=== PATIENT | male | born 1960 | race Asian ===

== ENCOUNTER 2025-03-09 18:56 | Emergency (ER) | payer MEDICARE, MEDICAID ==
[~2025-03-09] VITALS: Ht 154.9 cm; Wt 82.1 kg
[~2025-03-09 18:56] MED LIST: AMLO5TAB2 PO; ATOR10TA70 PO; DOXA4TAB42 PO; GEMF600T89 PO; METO-395 PO; VALS80TA32 PO
[2025-03-09 19:06] VITALS: BP 139/73; PULSE 109; O2SAT 96
[2025-03-09] MEDS ORDERED: ketorolac trometh 30MG/ML vial 30 MG/ML VIAL IM STA (20:08)
[2025-03-09 20:45] VITALS: RESP 14
[2025-03-09] MEDS: ketorolac trometh 15mg/ml vial 15 MG/ML ML IM STA (20:45)
--- NOTE | 2025-03-09 20:53 | RADIOLOGY REPORT ---
INDICATION: neck pain TECHNIQUE: 4 views of the cervical spine were obtained. COMPARISON: None FINDINGS: The cervical spine is visualized from C1-C7. There is loss of the normal cervical lordosis which can be positional. No fractures or subluxations are identified. Multilevel degenerative changes of the spine Alignment appears unremarkable. Prevertebral soft tissues are within normal limits. IMPRESSION: No acute fracture or subluxation
--- NOTE | 2025-03-09 21:50 | Physician Documentation ---
History of Present Illness ~ Chief Complaint: Neck pain Stated Complaint: NECK PAIN Time Seen by MD: 19:36 HPI Patient is seen today with complaints of left-sided neck pain. He states he has had this pain for quite a few years but just recently became worse and he feels tight muscles in his left side of his neck. Patient denies any specific injury and denies any numbness or tingling of his upper or lower extremities. He has no other concern or complaint at this time. Medication Reconciliation Allergies: Coded Allergies: No Known Allergies (Unverified , 03/09/25) Scheduled Amlodipine Besylate (Amlodipine Besylate), 5 MG PO DAILY, (Reported) Atorvastatin Calcium (Atorvastatin Calcium), 10 MG PO DAILY, (Reported) Doxazosin Mesylate (Doxazosin Mesylate), 1 TAB PO DAILY, (Reported) Gemfibrozil (Gemfibrozil), 1 TAB PO BID, (Reported) Metoprolol Succinate (Metoprolol Succinate), 12.5 MG PO DAILY, (Reported) Valsartan (Valsartan), 1 TAB PO DAILY, (Reported) Past Medical History Past Medical History: Coronary Artery Disease, Hypertension Past Surgical History: coronary bypass surgery Smoking Status: Never smoker Alcohol Use: Occasionally Drug Use: none Lives with: Family Physical Exam Vital Signs: Temperature: 98.5, Source: Temporal, Heart Rate: 109, Respiratory Rate: 14, BP: 139/73, Pulse Oximetry: 96, Weight: 82.100 Oxygen Flow Rate: 0 Progress Results/Orders Results/Orders Orders - SAWYER CROSS [facility] Cervical Spine [facility] (03/09/25 20:08) Completed Orders - SAWYER CROSS [facility] Cervical Spine [facility] (03/09/25 20:08) Baclofen Tablet (Lioresal Tablet) (03/09/25 20:08) Ketorolac Trometh 15mg/Ml Vial (Toradol (03/09/25 20:20) Medications Received in ER Medications (Trade) Dose Ordered Sig/Mara Route PRN Reason Start Time Stop Time Status Last Admin Dose Admin (Lioresal tablet) 10 mg ONCE STAT PO 03/09/25 20:08 03/09/25 20:16 DC 03/09/25 20:45 10 MG (Toradol injection) 15 mg ONCE STAT IM 03/09/25 20:20 03/09/25 20:21 DC 03/09/25 20:45 15 MG Vital Signs 03/09/25 03/09/25 19:06 20:45 Temp 98.5 Pulse 109 Resp 20 14 B/P (MAP) 139/73 Pulse Ox 96 O2 Flow Rate 0 EKG/XRAY/CT/US/VASC/MRI Bone/Soft Tissue X-Ray (Spine) : Additional Comment X-ray of cervical spine interpreted by myself today shows no sign of acute fracture, bones in anatomic alignment, no subluxation DIAGNOSTIC RADIOLOGY Patient: EDWIN CHOU Medical Record: [id number] [facility] 1960, Age: 64 Sex: Male Location: ER Patient Status: REG ER Service Date/Time: 03/09/252007 Ordering Physician: SAWYER CROSS PAC Exam: [facility] INDICATION: neck pain TECHNIQUE: 4 views of the cervical spine were obtained. COMPARISON: None FINDINGS: The cervical spine is visualized from C1-C7. There is loss of the normal cervical lordosis which can be positional. No fractures or subluxations are identified. Multilevel degenerative changes of the spine Alignment appears unremarkable. Prevertebral soft tissues are within normal limits. IMPRESSION: No acute fracture or subluxation Electronically Signed by:TREV HILLIARD MD Date & Time: 03/09/252049 Dictated by: TREV HILLIARD MD Dictation date and time: 03/09/252049 Primary Care Provider: NO PRIMARY CARE PROVIDER cc: SAWYER CROSS PAC ~ Medical Decision Making Findings Patient is seen today with complaints of left-sided neck pain. He states he has had this pain for quite a few years but just recently became worse and he feels tight muscles in his left side of his neck. Patient denies any specific injury and denies any numbness or tingling of his upper or lower extremities. He has no other concern or complaint at this time. Patient did have x-ray of C-spine of neck that showed no sign of acute fracture, and was unremarkable. Patient received Torado 15 mg IM in the ED tonight. As well as baclofen 10 mg by mouth. Patient reported decent relief of pain or improvement of pain an hour later. Patient was given prescription for ibuprofen and muscle relaxer sent to patient's pharmacy. Patient will follow up with primary care in 2-5 days if no better as needed sooner for referral to physical therapy and/or orthopedic intranet specialist. Return to ED with any worsening, concerning or changing symptoms. Departure Disposition: HOME / SELF CARE / HOMELESS Impression: Primary Impression: Neck pain Condition: Improved Discharge Instructions: Acute Torticollis, Adult Additional Instructions: Patient did have x-ray of C-spine of neck that showed no sign of acute fracture, and was unremarkable. Patient received Torado 15 mg IM in the ED tonight. As well as baclofen 10 mg by mouth. Patient reported decent relief of pain or improvement of pain an hour later. Patient was given prescription for ibuprofen and muscle relaxer sent to patient's pharmacy. Patient will follow up with primary care in 2-5 days if no better as needed sooner for referral to physical therapy and/or orthopedic intranet specialist. Return to ED with any worsening, concerning or changing symptoms. Referrals: NO PRIMARY CARE PROVIDER (PCP) Prescriptions Methocarbamol (Methocarbamol) 750 Mg Tablet 1 TAB PO Q8H for 30 Days, #90 TAB 0 Refills Prov: SAWYER CROSS 03/09/25 Ibuprofen (Ibuprofen) 800 Mg Tablet 1 TAB PO Q8H for pain for 10 Days, #30 TAB 0 Refills Prov: SAWYER CROSS 03/09/25 Signature Scribe Signature: No scribe Attestation: No scribe SAWYER CROSS Mar 09, 2025 21:50
[2025-03-09] MEDS ORDERED: IBUP-1986 PO (21:52)
[2025-03-09] MEDS ORDERED: METH-798 PO (21:52)
[2025-03-09 21:59] VITALS: TEMP 98.5
== END 2025-03-09 22:02 | disposition home or self-care (01) ==
LOC: ER 18:56
DX: M54.2 Cervicalgia (principal); I10 Essential (primary) hypertension; I25.10 Atherosclerotic heart disease of native coronary artery without angina pectoris; Z95.1 Presence of aortocoronary bypass graft
CPT/HCPCS: 72040; 96372; 99283; J1885